=== PATIENT | male | born 1975 | race Caucasian/White ===

== ENCOUNTER 2018-04-11 08:09 | Day surgery (SDC) | payer OTHER ==
[2018-04-11] MEDS ORDERED: Mastisol Adhesive Liq ONE (08:18)
[2018-04-11] MEDS ORDERED: EPINEPHRINE/PF 1 MG/ML AMP ONE ×3 (08:18→10:15)
[2018-04-11] MEDS ORDERED: NA CHLORIDE 0.9% 2,000 ML ONE ×2 (08:18→11:09)
[2018-04-11] MEDS ORDERED: Ringers Lactate 1,000 ML IV ONE (08:25)
[2018-04-11] MEDS ORDERED: CEFAZOLIN/SWI 1gm 1 GM/10 ML SYR ONE (08:25)
[2018-04-11] MEDS ORDERED: CEFAZOLIN/SWI 1gm 1 GM/10 ML SYR IV SCH (08:45)
[2018-04-11] MEDS ORDERED: PROPOFOL 200 MG/20 ML VIAL IV ONE (08:49)
[2018-04-11] MEDS ORDERED: FENTANYL CITR 100 MCG/2 ML ONE ×2 (08:50→10:05)
[2018-04-11] MEDS ORDERED: MIDAZOLAM HCL 2 MG/2 ML INJ ONE (08:50)
[2018-04-11] MEDS ORDERED: ROCURONIUM 50 MG/5 ML VIAL IV ONE (08:51)
[2018-04-11] MEDS ORDERED: ONDANSETRON HCL 40 MG/20 ML VIAL ONE (08:51)
[2018-04-11] MEDS ORDERED: SCOPOLAMINE HYDROBROMIDE PATCH TD ONE (08:58)
[2018-04-11] MEDS: MEPERIDINE HCL 50 MG/ML AMP ONE ×2 (11:05→11:11)
[2018-04-11] MEDS ORDERED: HYDROCODONE/APAP 5/325 MG TAB ONE (12:12)
--- NOTE | 2018-04-11 20:36 | OP ---
Surgeon: Murray Hogue MD Hypoid Gear Tester: Matthieu. 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 Postoperative Diagnosis: Lipodystrophy of abdomen and flanks. Procedure Performed: Liposuction of the abdomen and flanks, 3400 cc in, 3600 cc out. Anesthesia: General. Procedure In Detail: The patient was prepped supine on the table. then anesthesia was induced, then anterior prep was performed with DuraPrep, dry sterile drapes applied in the usual manner. Incision was made near the area of the right anterior superior iliac spine. 650 cc were infused in the right flank and 550 in the right abdomen. Incision was made opposite left side, 650 cc into the left abdomen and 650 cc into the left flank. Liposuction was performed using 4 mm cannula. 500 cc out of the right flank, 250 cc from the right abdomen. 300 cc from left abdomen and 550 cc from the left flank. The patient then placed in lateral decubitus position. Incision was made cephalad to the iliac crest and then the left side had 350 cc infused and 950 cc using a 5 mm cannula. The patient was then flipped with upside and 550 cc infused and 950 cc aspirated. The wounds were closed with 4-0 PDS, Steri-Strips, and compression garment applied. The patient tolerated the procedure well and returned to recovery. SAMUEL/STEVE Voice ID: [id number] Report ID: [id number] [id number]
== END 2018-04-11 13:03 | disposition home or self-care (01) ==
LOC: OR 08:09
PROVIDERS: ATTEND Specialist
PROC: 0J083ZZ Alteration of Abdomen Subcutaneous Tissue and Fascia, Percutaneous Approach (ICD-10-PCS; principal; 2018-04-11 09:00)
DX: E88.1 Lipodystrophy, not elsewhere classified (principal)
CPT/HCPCS: J0171; J0690; J2175; J2250; J2405; J3010; J7030